=== PATIENT | female | born 1965 ===

== ENCOUNTER 2021-06-13 08:56 | Outpatient (REF) | payer OTHER, SELFPAY ==
--- NOTE | 2021-06-13 12:11 | MHC.AU.ANO ---
Adult Audiological Evaluation Date of Visit: 06/13/21 Corporate Treasury Analyst Used: Not Applicable Reason for Appointment: Audiologic evaluation due to increasing trouble understanding speech. Sonya reports she had a hearing test in 2017 with [facility] with results indicating a mild hearing loss, with no asymmetry being mentioned. Amplification was not recommended at that time. Hearing difficulties are are now interfering with Sonya's daily communication and causing great frustration. Does patient feel they have a hearing loss?: Yes If Yes, Which Ear?: Left Ear greater than right ear Has hearing been tested previously?: Yes Previous Hearing Test Results: Results are not available for review Hearing Handicap Inventory: HHIE SCORE: 34 Based on HHIE score, patient has: Severe perceived hearing handicap Ear History: Unremarkable Medical History: Medical History: Arthritis, Fibromyalgia, high cholesterol. Diagnosed with Attention Deficit Disorder at the age of 33. Medication List: Simvastatin Otoscopy: Right Ear: Unremarkable Left Ear: Unremarkable Tympanometry: Tympanometry performed due to: To assess integrity of the middle ear system Right Ear: Normal Middle Ear System (Type A) Left Ear: Normal Middle Ear System (Type A) Acoustic Reflexes: Ipsilateral Probe Right: 500 Hz: Absent 1000 Hz: Present 2000 Hz: Present 4000 Hz: Absent Probe Left: 500 Hz: Present 1000 Hz: Present 2000 Hz: Present 4000 Hz: Absent Otoacoustic Emissions Frequency Range Used: 1.6-8 kHz Right Ear Results: Present 7353-3454 Hz with a present but reduced emission at 4000 Analysis: Present emissions suggest normal cochlear function Rules out peripheral hearing loss greater than a mild degree Left Ear Results: Present 3870-9896 Hz. Absent 8228-1502 Hz. Analysis: Consistent with hearing test results. Hearing Evaluation: Transducer(s) Used: Insert Earphones Bone Conduction Method: Conventional Audiometry Stimuli Used: Pure Tones Right Ear: Description of Hearing: Normal hearing thresholds 250-8000 Hz Left Ear: Description of Hearing: Normal hearing levels 250-1000 Hz, sloping to a moderate high frequency sensorineural hearing loss. Speech Recognition Threshold (SRT): Method Used: Monitored Live Voice Stimuli Used: Spondee Words Right Ear: 10 dB HL Left Ear: 15 dB HL Word Discrimination: Method: Recorded Lists Word Lists Used: NU-6 Right Ear: 100% at 50 dB HL Left Ear: 100% at 55 dB HL 100% at 90 dB HL suggesting there is no rollover of discrimination ability at high presentation level. QuickSIN: Binaural Quick SIN : 6 dB SNR Loss suggesting Sonya experiences a mild degree of difficulty understanding speech with increasing levels of background noise in this controlled test environment. Real world listening conditions and distractions will likely cause increased speech discrimination problems. Recommendations: - [facility]erral [facility] is recommended due to the asymmetric hearing loss. - Trial with left amplification is recommended. - Medical clearance from a physician is required before fitting. - If medically cleared for a hearing aid in the left ear from the Rewrite Editor, Sonya may schedule a Hearing Aid Evaluation at this office. - Audiological re-evaluation in one year. Will send a reminder card. Diagnosis: Primary Diagnosis: H90.3 Bilateral Sensorineural Hearing Loss Services Performed: Comprehensive Audiological Evaluation (CPT 88788) Diagnostic Otoacoustic Emissions (CPT 98856, 26+TC) Tympanometry and Acoustic Reflexes (CPT 98258) Signature: Provider: Mimi Linda, CCC-A
== END 2021-06-13 08:57 | disposition home or self-care (01) ==
LOC: HO.SH 08:56
PROVIDERS: PCP Internal Medicine; Visit Provider Internal Medicine
DX: H90.3 Sensorineural hearing loss, bilateral (principal)
CPT/HCPCS: 92550; 92557; 92588

== ENCOUNTER 2021-08-24 12:54 | Outpatient (REF) | payer SELFPAY ==
--- NOTE | 2021-08-24 14:16 | MHC.AU.HAS ---
Hearing Aid Evaluation Date of Visit: 08/24/21 Historical Information: Description of Hearing: Right ear - Normal hearing 250-8000 Hz. Left Ear - Normal hearing levels 250-1000 Hz, sloping to a moderate high frequency sensorineural hearing loss Current personal amplification information, if applicable: None Summary: Received medical clearance for the left ear from ENT Bird Justin. Discussed appropriate styles of hearing aids, pros and cons of all styles, realistic expectations, and patient's needed. Patient wants a custom ITC style. Due to her severe arthritis which is greater for her left hand, will order a rechargeable aid. Hearing Aid Prescription: Based on the individual?s shared listening needs, communication environments, dexterity, desire for connectivity, and personal preferences, the following prescription for amplification has been made: Right ear: Capital Project Engineer: NONE Left ear: Capital Project Engineer: [place] Model: Evolv AI 1600 ITC-R Battery Size: Rechargeable Color: [place] Plan of Care: Patient wishes to purchase hearing aids as prescribed Action Taken/Action Needed: Earmold Impressions Taken, Medical clearance in chart Hearing Instrument Fitting to be scheduled when materials arrive Primary Diagnosis: H90.42 SNHL Unilateral Left Side, W/Unrestricted Contralateral Hearing Signature: Provider: Mimi Linda, CCC-A
== END 2021-08-24 12:55 | disposition home or self-care (01) ==
LOC: HO.HAP 12:54
PROVIDERS: Visit Provider Internal Medicine
DX: Z13.89 Encounter for screening for other disorder (principal)
CPT/HCPCS: 92590; V5275

== ENCOUNTER 2021-09-27 10:23 | Outpatient (REF) | payer SELFPAY | END 2021-09-27 10:24 | disposition home or self-care (01) | LOC: HO.HAP 10:23 | PROVIDERS: Visit Provider Otolaryngology | DX: Z46.1 Encounter for fitting and adjustment of hearing aid (principal); H90.42 Sensorineural hearing loss, unilateral, left ear, with unrestricted hearing on the contralateral side | CPT/HCPCS: 92591; V5255; V5299 ==

== ENCOUNTER 2021-10-04 13:49 | Outpatient (REF) | payer SELFPAY | END 2021-10-04 13:50 | disposition home or self-care (01) | LOC: HO.HAP 13:49 | PROVIDERS: Visit Provider Internal Medicine | DX: Z13.89 Encounter for screening for other disorder (principal) ==

== ENCOUNTER 2021-10-16 12:55 | Outpatient (REF) | payer SELFPAY | END 2021-10-16 12:56 | disposition home or self-care (01) | LOC: HO.HAP 12:55 | PROVIDERS: Visit Provider Internal Medicine | DX: Z13.89 Encounter for screening for other disorder (principal) ==

== ENCOUNTER 2021-10-31 12:27 | Outpatient (REF) | payer SELFPAY | END 2021-10-31 12:28 | disposition home or self-care (01) | LOC: HO.HAP 12:27 | PROVIDERS: Visit Provider Internal Medicine | DX: Z13.89 Encounter for screening for other disorder (principal) ==